=== PATIENT | male | born 1955 | race Caucasian/White ===

== ENCOUNTER 2024-10-06 06:04 | Observation (INO) | payer MEDICARE, BC ==
[~2024-10-06] VITALS: Ht 175 cm; Wt 94.3 kg
[2024-10-06] VITALS (17 sets, daily range): BP systolic 137–157; BP diastolic 66–88
[~2024-10-06 06:04] MED LIST: ATOR10; Aspirin EC81 MG PO; Crestor40 MG PO; EZET10 PO; FARXIGA10 MG PO; Fish Oil 10001000 MG; GARLIC200 MG PO; HYDCHL25; INSULANI SC; INSULANPEN SC; LISI5 PO; METF500 PO; METO100 PO; QUIN5; SIMV10
[2024-10-06] MEDS ORDERED: Lactated Ringer's 1,000 ML IV SCH (06:25)
[2024-10-06] MEDS ORDERED: Acetaminophen 500 MG Tab PO SCH (06:25)
[2024-10-06] MEDS ORDERED: Bupivacaine 0.5% HCl 5 MG/ML 30MLVIAL ONE (06:59)
[2024-10-06] MEDS ORDERED: FentaNYL Citrate 50 MCG/ML 2 ML Injection ONE ×2 (07:14→08:19)
[2024-10-06] MEDS ORDERED: Lidocaine HCl 2% 20 ML MDV ONE (07:15)
[2024-10-06] MEDS ORDERED: Rocuronium Bromide 10 MG/ML 5ML Injection IV ONE (07:15)
[2024-10-06] MEDS ORDERED: propofoL 20 ML IV ONE ×2 (07:15→09:08)
[2024-10-06] MEDS ORDERED: Ondansetron HCl 2 MG / ML 2ML Vial IV PRN ×2 (07:20→08:00)
[2024-10-06] MEDS ORDERED: OxyCODONE HCL 5 MG TAB PO PRN (07:20)
[2024-10-06] MEDS ORDERED: Metoclopramide HCl 5MG / ML 2ML Vial IV PRN ×2 (07:25→08:05)
[2024-10-06] MEDS ORDERED: FLU VACC TS2024-25(6MOS UP)/PF 45 MCG/0.5 ML SYRINGE IM SCH (07:25)
[2024-10-06] MEDS ORDERED: HYDROmorphone HCl/Pf 1MG SYR IV PRN ×3 (07:25→08:00)
[2024-10-06] MEDS ORDERED: Acetaminophen 325 MG TABLET PO PRN (07:25)
[2024-10-06] MEDS ORDERED: Insulin Regular 100 UNIT/ML 10ML Vial SC SCH (07:30)
[2024-10-06] MEDS ORDERED: Ketorolac Tromethamine 15mg Vial IV PRN (07:35)
[2024-10-06] MEDS ORDERED: Dexamethasone Sod Phos 10 MG/ML 1ML VIAL ONE (07:44)
[2024-10-06] MEDS ORDERED: Phenylephrine HCl 100 MCG/ML-NS 10MLSYR (1MG/10ML) ONE (07:46)
[2024-10-06] MEDS ORDERED: Labetalol HCL 5 MG/ML 4ML Injection (Single Dose) IV PRN (08:00)
[2024-10-06] MEDS ORDERED: HydrALAZINE HCl 20 MG / ML 1ML Vial IV PRN (08:00)
[2024-10-06] MEDS ORDERED: FentaNYL Citrate 50 MCG/ML 2 ML Injection IV PRN ×2 (08:00)
[2024-10-06] MEDS ORDERED: ePHEDrine Sulfate 50 MG/ML 1ML Injection IV PRN (08:05)
[2024-10-06] MEDS ORDERED: HYDROmorphone HCl/Pf 1MG SYR ONE ×3 (08:44→10:17)
[2024-10-06] MEDS ORDERED: Ondansetron HCl 2 MG / ML 2ML Vial ONE (08:45)
[2024-10-06] MEDS ORDERED: Metoprolol Tartrate 50 MG Tab PO SCH (09:00)
[2024-10-06] MEDS ORDERED: Ezetimibe 10 MG Tab PO SCH (09:00)
[2024-10-06] MEDS ORDERED: Rosuvastatin Calcium 10 MG Tab PO SCH (09:00)
[2024-10-06] MEDS ORDERED: Lisinopril 10 MG Tab PO SCH (09:00)
[2024-10-06] MEDS ORDERED: Magnesium Oxide 400 MG Tab PO SCH (09:00)
[2024-10-06] MEDS ORDERED: Sugammadex Sodium 200 MG/2ML SDV (100 MG/ML) ONE (09:08)
--- NOTE | 2024-10-06 11:05 | NUR ---
ARRIVAL TO UNIT PT ARRIVED TO UNIT FROM PACU S/P HIATAL HERNIA REPAIR WITH FUNDOPLICATION PT GROGGY BUT ORIENTED X4. DENIES ABD PAIN BUT REPORTS PAIN IN BILATERAL SHOULDERS. KPAD PROVIDED FOR COMFORT TO SHOULDERS. PT TOLERATING SMALL SIPS OF WATER. NO NAUSEA. REMAINS ON 3L NASAL CANULA, WILL TITRATE DOWN ONCE PATIENT TOLERATES. LAP SITES X4 CDI WITH WOUND GLUE.
--- NOTE | 2024-10-06 17:51 | NUR ---
PT HAS BEEN UP AND OOB, AMBULATING IN ROOM. DENIES ANY ABDOMINAL PAIN. PAIN LOCATED IN L SHOULDER FROM BONE SPUR PER PT REPORT. ICE PACK PROVIDED. TOLERATING DIET AT THIS TIME, NO DIFFICULTY SWALLOWING. LAP SITES REMAIN CDI.
[2024-10-07 03:45] VITALS: BP 143/70
[2024-10-07 06:57] LABS: Hematocrit 38.3 % (37.0-53.0); Hemoglobin 13.1 g/dL (13.5-17.5); Mean Corpuscular HGB 29.4 pg (26.0-34.0); Mean Corpuscular HGB Conc 34.2 g/dL (31.5-36.5); Mean Corpuscular Volume 86 fL (80-100); Mean Platelet Volume 9.4 fL (9.1-12.4); Platelet Count 227 K/mm3 (150-400); RDW Coefficient Variation 13.8 % (11.7-14.2); RDW Standard Deviation 43.4 fL (35.1-46.3); Red Blood Cell Count 4.45 M/mm3 (4.30-5.90); White Blood Cell Count 14.89 K/mm3 (4.00-11.30)
--- NOTE | 2024-10-07 06:59 | NUR ---
SHIFT SUMMARY NOC. PT A/O X4, PT'S LAP SITES C/D/I. TOLERATING DIET. VOIDING URINE. MEDICATED FOR PAIN WITH REPORTED RELIEF OF SX. PT'S PRIMARY PAIN IS CHRONIC IN LEFT SHOULDER. AT BEDSIDE T/O NIGHT. MAKES NEEDS KNOWN. CALL LIGHT IN REACH.
[2024-10-07 07:14] VITALS: BP 117/53
[2024-10-07] MEDS ORDERED: Insulin Glargine-Yfgn 100 Unit/mL 3 ML SYR SC SCH (09:00)
[2024-10-07] MEDS ORDERED: Enoxaparin 40 MG/0.4 ML SYR SC SCH (09:00)
--- NOTE | 2024-10-07 10:06 | NUR ---
DISCHARGE: PT IS TOLERATING FULL LIQ DIET, SURGICAL SITES CDI. MINIMAL PAIN. WALKING AND VOIDING. DR. CARO IN ROOM AT ABOUT 0900, OK FOR DC. PACKET PRINTED AND PT EDUCATED. IV DC'D WNL, TIP INTACT. PT LEFT UNIT ON FOOT WITH FAMILY AT ABOUT 1000.
== END 2024-10-07 09:59 | disposition home or self-care (01) ==
LOC: PRE IP 06:04 → MEDS 06:04 → PRE IP 07:30 → SURS 07:31 → MEDS 07:31 → SURS 10:24
PROVIDERS: ADMIT Surgery
PROC: 0BQT4ZZ Repair Diaphragm, Percutaneous Endoscopic Approach (ICD-10-PCS; principal; 2024-10-06 07:30)
DX: K44.9 Diaphragmatic hernia without obstruction or gangrene (principal); K21.9 Gastro-esophageal reflux disease without esophagitis; I10 Essential (primary) hypertension; E78.5 Hyperlipidemia, unspecified; E11.36 Type 2 diabetes mellitus with diabetic cataract; E66.811 Obesity, class 1; Z68.31 Body mass index [BMI] 31.0-31.9, adult; Z79.4 Long term (current) use of insulin; Z79.82 Long term (current) use of aspirin; Z79.84 Long term (current) use of oral hypoglycemic drugs; Z79.899 Other long term (current) drug therapy
CPT/HCPCS: 36415; 82947; 85027; A9270; J1100; J1171; J1650; J1815; J1885; J2371; J2405; J2704; J3010; J7120

== ENCOUNTER 2025-03-30 16:03 | Inpatient (IN) | payer MEDICARE, BC ==
[~2025-03-30] VITALS: Ht 177.8 cm; Wt 95.2 kg
[2025-03-30 16:38] LABS: BASOPHILS ABSOLUTE AUTO 0.06 K/mm3 (0.00-0.23); BASOPHILS PERCENT AUTO 1 % (0-2); EOSINOPHILS ABSOLUTE AUTO 0.16 K/mm3 (0.00-0.68); EOSINOPHILS PERCENT AUTO 2 % (0-6); Hematocrit 41.1 % (37.0-53.0); Hemoglobin 13.7 g/dL (13.5-17.5); IMMATURE GRAN ABSOLUTE AUTO 0.03 K/mm3 (0.00-0.10); IMMATURE GRAN PERCENT AUTO 0 % (0-1); LYMPHOCYTES ABSOLUTE AUTO 2.06 K/mm3 (0.84-5.20); LYMPHOCYTES PERCENT AUTO 21 % (21-46); MONOCYTES ABSOLUTE AUTO 0.85 K/mm3 (0.16-1.47); MONOCYTES PERCENT AUTO 8 % (4-13); Mean Corpuscular HGB Conc 33.3 g/dL (31.5-36.5); Mean Corpuscular Volume 88 fL (80-100); NEUTROPHILS ABSOLUTE AUTO 6.90 K/mm3 (1.96-9.15); NEUTROPHILS PERCENT AUTO 69 % (41-73); NRBC ABSOLUTE 0.00 K/mm3 (0.00-0.02); NRBC Auto 0.0 /100 WBC (0.0-0.2); Platelet Count 184 K/mm3 (150-400); RDW Coefficient Variation 13.6 % (11.7-14.2); RDW Standard Deviation 43.6 fL (35.1-46.3)
[2025-03-30 17:21] LABS: Alanine Aminotransfer (ALT/SGP 25.0 U/L (12-78); Albumin, Blood 3.4 g/dL (3.4-5.0); Albumin/Globulin Ratio 1.0 (0.8-1.8); Anion Gap 9.0 mmol/L (3-11); Aspartate Aminotrans (AST/SGOT 37.0 U/L (12-37); Bilirubin, Total 0.3 mg/dL (0.1-1.0); Blood Urea Nitrogen 33.0 mg/dL (8-24); CO2, Blood 20.0 mmol/L (21-32); Calcium, Blood 8.8 mg/dL (8.5-10.1); Chloride, Blood 111.0 mmol/L (98-108); Creatinine, Blood 1.43 mg/dL (0.60-1.20); Globulin, Blood 3.5 g/dL (2.2-4.0); Glucose, Blood 178.0 mg/dL (70-99); Potassium, Blood 4.3 mmol/L (3.5-5.5); Sodium, Blood 136.0 mmol/L (136-145); Total Protein, Blood 6.9 g/dL (6.4-8.2)
[2025-03-30] MEDS ORDERED: HydrALAZINE HCl 20 MG / ML 1ML Vial IV PRN (20:05)
[2025-03-30 20:54] VITALS: BP 128/64
[2025-03-30] MEDS ORDERED: VITAMIN D5000 UNIT PO (21:09)
[2025-03-30] MEDS ORDERED: FISH OIL 1,0001 EA10 PO (21:10)
[2025-03-30 23:43] VITALS: BP 165/68
[2025-03-30 23:56] VITALS: BP 154/71
[2025-03-31] MEDS ORDERED: Insulin Human Lispro 100 Units/ML 3ML Syringe SC SCH
--- NOTE | 2025-03-31 03:14 | NUR ---
PT ADMITTED DURING SHIFT FOR CHEST PAIN. NO COMPLAINTS OF CHEST PAIN DURING SHIFT. PATIENT ALERT AND ORIENTED X4, ABLE TO MAKE NEEDS KNOWN. PATIENT ON ROOM AIR AND ON TELE- RUNS BRADYCARDIC. PATIENT IS INDEPENDENT IN THE ROOM. NPO AT MIDNIGHT. BED IN LOW POCITION WITH WHEELS LOCKED. CALL LIGHT WITHIN REACH
[2025-03-31 04:32] VITALS: BP 149/68
[2025-03-31 07:46] VITALS: BP 150/65
[2025-03-31] MEDS ORDERED: Enoxaparin 40 MG/0.4 ML SYR SC SCH (09:00)
[2025-03-31] MEDS ORDERED: Insulin Glargine-Yfgn 100 Unit/mL 3 ML SYR SC SCH (09:00)
[2025-03-31 11:16] VITALS: BP 170/70
[2025-03-31] MEDS ORDERED: METO100ER PO (12:22)
[2025-03-31 15:47] VITALS: BP 142/67
--- NOTE | 2025-03-31 18:37 | NUR ---
SHIFT SUMMARY PATIENT ALERT AND INTERACTIVE. PATIENT INDEPENDENT IN THE ROOM. PT DENIES ANY CHEST PAIN AT THIS TIME. EDUCATION PROVIDED RELATED TO CHEST PAIN AND WHEN TO REPORT TO STAFF. PATIENT NPO THROUGHOUT DAY FOR POSSIBLE CARDIAC CATH. PATIENT TO GO TO [facility] TOMORROW. CARDIOLOGY UPDATED PATIENT AND FAMILY. PATIENT VOICING FRUSTRATION BUT UNDERSTANDING. PT MEDICATED X1 WITH HYDRALAZINE FOR ELEVATED BP. CLARIFIED WITH CARDIOLOGY TO HOLD LOVENOX AGAIN FOR TOMORROW.
[2025-03-31 19:08] VITALS: BP 118/69
[2025-04-01] VITALS (14 sets, daily range): BP systolic 133–156; BP diastolic 69–82
[2025-04-01 05:46] LABS: BASOPHILS ABSOLUTE AUTO 0.05 K/mm3 (0.00-0.23); BASOPHILS PERCENT AUTO 1 % (0-2); EOSINOPHILS ABSOLUTE AUTO 0.15 K/mm3 (0.00-0.68); EOSINOPHILS PERCENT AUTO 2 % (0-6); Hematocrit 44.0 % (37.0-53.0); Hemoglobin 14.6 g/dL (13.5-17.5); IMMATURE GRAN ABSOLUTE AUTO 0.02 K/mm3 (0.00-0.10); IMMATURE GRAN PERCENT AUTO 0 % (0-1); LYMPHOCYTES ABSOLUTE AUTO 2.12 K/mm3 (0.84-5.20); LYMPHOCYTES PERCENT AUTO 23 % (21-46); MONOCYTES ABSOLUTE AUTO 0.81 K/mm3 (0.16-1.47); MONOCYTES PERCENT AUTO 9 % (4-13); Mean Corpuscular HGB Conc 33.2 g/dL (31.5-36.5); Mean Corpuscular Volume 87 fL (80-100); NEUTROPHILS ABSOLUTE AUTO 6.08 K/mm3 (1.96-9.15); NEUTROPHILS PERCENT AUTO 66 % (41-73); NRBC ABSOLUTE 0.00 K/mm3 (0.00-0.02); NRBC Auto 0.0 /100 WBC (0.0-0.2); Platelet Count 207 K/mm3 (150-400); RDW Coefficient Variation 13.8 % (11.7-14.2); RDW Standard Deviation 43.6 fL (35.1-46.3)
[2025-04-01 06:05] LABS: Anion Gap 10.0 mmol/L (3-11); Blood Urea Nitrogen 32.0 mg/dL (8-24); CO2, Blood 21.0 mmol/L (21-32); Calcium, Blood 9.5 mg/dL (8.5-10.1); Chloride, Blood 111.0 mmol/L (98-108); Creatinine, Blood 1.3 mg/dL (0.60-1.20); Glucose, Blood 126.0 mg/dL (70-99); Potassium, Blood 4.3 mmol/L (3.5-5.5); Sodium, Blood 138.0 mmol/L (136-145)
--- NOTE | 2025-04-01 06:13 | NUR ---
SHIFT SUMMARY NOC PT A/O X 4. PLEASANT AND COOPERATIVE WITH CARE. VSS. Q6H CBG 110 AND 126 THIS AM. ON TELE SINUS RHYTHM 90 BPM AND VERIFIED RHYTHM STRIP AND AGREE WITH RATE/RHTYHM. 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 PT HAS NOT HAD ANY C/O CP/DISCOMFORT. PT SPOUSE STAYED NIGHT WITH PT. PT CURRENTLY RESTING WITH BED IN LOWEST POSITION, AND CALL LIGHT WITHIN REACH.
[2025-04-01] MEDS ORDERED: Heparin Sodium 1000 Units/ML 10ML MDV ONE (07:50)
[2025-04-01] MEDS ORDERED: Verapamil HCL 2.5 MG/ML 2ML Injection ONE (07:50)
[2025-04-01] MEDS ORDERED: Nitroglycerin 2 MG/20 ML BTL ONE (07:51)
[2025-04-01] MEDS ORDERED: NS 250 ML IV ONE (07:51)
[2025-04-01] MEDS ORDERED: NS 1,000 ML IV ONE ×2 (07:51→08:10)
--- NOTE | 2025-04-01 08:35 | NUR ---
TRANSFER TO [facility]ING [facility]ACHINE TENDER AND PCU PATIENT ALERT AND INDEPENDENT IN THE ROOM. PATIENT DENIES ANY CHEST PAIN. PATIENT TAKEN TO GUM ROLLING MACHINE TENDER VIA WHEELCHAIR BY GUM ROLLING MACHINE TENDER STAFF. FAMILY FOLLOWED PATIENT TO [facility] RO[facility]ING MACHINE TENDER. REPORT CALLED TO PCU NURSE. PATIENT TO GO TO PCU 6 AFTER PROCEDURE.
[2025-04-01] MEDS ORDERED: Midazolam HCl 1MG / ML 2ML Vial ONE (08:37)
[2025-04-01] MEDS ORDERED: FentaNYL Citrate 50 MCG/ML 2 ML Injection ONE (08:37)
--- NOTE | 2025-04-01 10:07 | NUR ---
arrival to pcu patient [facility] into [facility] via bed at 0952. vital signs stable. tele sinus rhythm. patient has a right radial site that has the tr band in place with 11cc. right radial site is soft nontender, no bleeding, or hematoma. patient is aware that plan is to make arrangmwenrts for patient to be transfered for high level of care, needing a cabg done. patient is alert and oriented x4. neuro is intact. perrla. denies pain, chest pain/pressure or shortness of breath. patient is independent in adls and educated on restrictions with right radial site. see shift assessment for further detials,
[2025-04-01] MEDS ORDERED: Insulin Human Lispro 100 Units/ML 3ML Syringe SC SCH (11:33)
--- NOTE | 2025-04-01 12:19 | NUR ---
UPDATE Md Fermin in the room and discussed multiple vessel disease and blockages and that the patient would benefit from a cabg. Patient and family agrees and requesting dr ramirez at [facility]. md fermin to call md lawrence. this rn called md shelley and updated.
--- NOTE | 2025-04-01 12:26 | NUR ---
rounding short in the room at this time discussing plan
--- NOTE | 2025-04-01 15:00 | NUR ---
TR BAND tr band is fully deflatted and recovered. the right radial site remains soft nontender no bleeding or hematoma on
--- NOTE | 2025-04-01 16:10 | NUR ---
shift summary vital signs remain stable. no acute changes. see previous notes
--- NOTE | 2025-04-01 16:59 | NUR ---
ASSUMPITION NOTE: THIS RN TO ASSUME CARE OF PATIENT. PATIENT RESTING IN BED WITH FAMILY AT BEDISDE. AWARE WE ARE AWAITING CARDIOLGOIST TO ROUND REGARDING PATIENT GOING TO BE ABLE TO DISCHARGE THIS EVENING OR TOMORROW MORNING. PATIENT VITAL SIGNS STABLE AND RIGHT WRIST ANGIOGRAM SITE RECOVERED. PATIENT HAS ARM BOARD OVER AND DENYING ANY PAIN WITH NEEDED INTERVENTION. PATIENT HAS CALL LIGHT WITHIN REACH AND STATING NOTHING ELSE IS NEEDED AT THIS TIME.
--- NOTE | 2025-04-01 17:06 | NUR ---
MD ROUNDED: MD ROUNDED AND SPOKE WITH PATIENT AND FAMILY REGARDING PATIENT BEING ABLE TO GET IN WITH PROVIDER IN [place] NEXT WEEK. [employer] SIGNED OFF AND MD TO TALK WITH HOSPITALISTS ABOUT DISCHARGING PATIENT.
[2025-04-01] MEDS ORDERED: ATOR40TA PO (17:41)
[2025-04-01] MEDS ORDERED: NITR.4SL SL (17:42)
--- NOTE | 2025-04-01 18:00 | NUR ---
DISCHARGE NOTE: PATIENT ALERT AND ORIENTED X4 & COOPERATIE WITH HIS CARE, IS ABLE TO MAKE NEEDS KNOWN & USES CALL LIGHT APPRORIATELY. SATTING >92% ON ROOM AIR. TELE TAKEN OFF AND IV TAKEN OUT. PATIENT AWARE HE WILL BE GETTING A CALL FROM [facility] TO SCHEDULED HIS PROCIEDURE OUTPATIENT. HE WAS STARTED ON NEW MEDICATION THAT WAS SENT TO [facility] PATIENT AND FAMILY AWARE AT [facility]. PATIENT AWARE TO FOLLOW UP WITH PRIMARY WITHIN 1 WEEK AND ANGIOGRAM CARE WITH THE RIGHT RADIAL WRIST SITE AND WHAT THAT LOOKS LIKE. PATIENT WAS WALKED OUT WITH ALL PERSONAL BELONGINS.
== END 2025-04-01 18:05 | disposition home or self-care (01) | DRG 287 ==
LOC: ER 16:03 → MEDS 16:04 → PCU 04-01 09:52
PROVIDERS: Emergency Medicine; Student in an Organized Health Care Education/Training Program; ADMIT Student in an Organized Health Care Education/Training Program
PROC: B2111ZZ Fluoroscopy of Multiple Coronary Arteries using Low Osmolar Contrast (ICD-10-PCS; principal; 2025-04-01)
DX: I25.118 Atherosclerotic heart disease of native coronary artery with other forms of angina pectoris (principal); I35.0 Nonrheumatic aortic (valve) stenosis; I77.810 Thoracic aortic ectasia; N18.31 Chronic kidney disease, stage 3a; E66.811 Obesity, class 1; I12.9 Hypertensive chronic kidney disease with stage 1 through stage 4 chronic kidney disease, or unspecified chronic kidney disease; E78.5 Hyperlipidemia, unspecified; R00.1 Bradycardia, unspecified; E11.22 Type 2 diabetes mellitus with diabetic chronic kidney disease; Z79.84 Long term (current) use of oral hypoglycemic drugs; Z79.4 Long term (current) use of insulin; Z79.82 Long term (current) use of aspirin; Z87.891 Personal history of nicotine dependence; Z68.30 Body mass index [BMI] 30.0-30.9, adult
CPT/HCPCS: 36415; 71046; 76937; 80048; 80053; 82947; 83690; 83880; 84484; 85025; 85347; 93005; 93010; 93306; 93454; 96374; 96376; 99152; 99153; 99285-25; A9270; C1769; C1887; C1894; G0378; J0360; J1644; J1815; J2250; J3010; J7030; J7050; Q9967